=== PATIENT | female | born 1960 | race Caucasian/White ===

== ENCOUNTER 2016-12-05 20:19 | Emergency (ER) | payer OTHER ==
[~2016-12-05] VITALS: Ht 165.1 cm; Wt 104.1 kg
[~2016-12-05 20:19] MED LIST: ASPEC81 PO; LPR25 PO; SPECTAB8 PO; SYN112 PO
[2016-12-05 20:23] VITALS: TEMP 36.8; Ht 165.1 cm; Wt 104.1 kg
[2016-12-05] MEDS ORDERED: XYLOCAINE 1%/SOD BICARB 20 ML VIAL INFIL ONE (21:15)
[2016-12-05] MEDS ORDERED: AMOX875T PO (22:12)
[2016-12-05] MEDS ORDERED: AMOXICIL/CLAVU 875MG HOME PACK PO ONE (22:15)
[2016-12-05 22:21] VITALS: BP 180/97; PULSE 109; O2SAT 95
--- NOTE | 2016-12-06 20:55 | EMERGENCY ROOM VISIT NOTE ---
History First contact with patient: 20:57 Chief Complaint: BITE Stated Complaint: BIT BY DOG, SIGNIFICANT BLEEDING FROM LIP History of Present Illness The patient is a 56 year old female who presents to the Emergency Room with complaints of dog bite laceration to her lip that occurred just prior to arrival. The patient has a young Poppy at home that is reportedly up-to-date on its immunizations including rabies. The patient leaned over to kiss the dog , when it nipped at her face, causing one of the dogs teeth to cut the right side of the patient's lip. The patient is up-to-date on her tetanus. She is on aspirin but no blood thinners. She did not suffer additional injury, but was not able to get the bleeding controlled at home. The patient rates her discomfort a 4/10. Review of Systems More than 10 systems were reviewed and otherwise negative with the exception of history of present illness. Past Medical/Surgical History Medical Problems: (1) Hypotension Family History No pertinent family history Social History Smoking Status: Never Smoker Alcohol Use: none Drug Use: none Marital Status: Housing Status: lives with family Occupation Status: employed Current/Historical Medications Scheduled Amoxicillin & Pot Clavulanate (Augmentin 875-125 mg), 1 TAB PO BID Levothyroxine Sodium (Synthroid), 112 MCG PO DAILYBB Metoprolol Tartrate (Lopressor), 25 MG PO DAILY Allergies Coded Allergies: Sulfamethoxazole w/Trimethoprim (Unverified Allergy, Unknown, RASH ON LEGS , 12/05/16) Physical Exam Vital Signs Date Time Temp Pulse Resp B/P Pulse Ox O2 Delivery O2 Flow Rate FiO2 12/05/16 22:21 109 18 180/97 95 12/05/16 20:23 36.8 130 20 187/85 97 Room Air Pain Rating (0-10): 4.0 Physical Exam VITALS: Vitals are noted on the nurse's note and reviewed by myself. Vital signs stable. GENERAL: Well-developed, well-nourished, white female, who is in no acute distress and resting comfortably. Patient is cooperative with the examination. HEAD: Normocephalic atraumatic. MOUTH: Mucous membranes moist. Tonsils are not enlarged. Pharynx without erythema, blood, or exudate. Uvula midline. Airway patent. Dentition in good repair. There is an irregular Y-shaped 1.5 cm laceration in the very corner of the right lip. This laceration does gape and will require repair. The laceration does not cross the vermilion border, but does mildly enter into the oropharynx. NECK: Supple without nuchal rigidity. No lymphadenopathy. No thyromegaly. Cervical spine is nontender. HEART: Regular rate and rhythm without murmurs gallops or rubs. LUNGS: Clear to auscultation bilaterally without wheezes, rales or rhonchi. No retractions or accessory muscle use. Medical Decision & Procedures Medications Administered Medications (Trade) Dose Ordered Sig/David Route Start Time Stop Time Status Last Admin Dose Admin Amoxicillin/ Clavulanate Potassium (Augmentin 875MG Home Pack) 1 homepack UD ONCE PO 12/05/16 22:15 12/05/16 22:16 DC 12/05/16 22:21 1 HOMEPACK Procedure Laceration repair. Patient elects to have their laceration repaired. Verbal consent was obtained to perform the procedure. There is an abundance of materials available for the procedure. Patient is not allergic to latex. Using sterile technique the wound was cleaned with Betadine. The area was sterilely draped. 3 mL of 1% buffered lidocaine was used to anesthetize the right side lip laceration. Once the patient was anesthetized, the wound was copiously irrigated under pressure with sterile saline. The wound was explored and there were no deep structures injured such as tendons, bone, or significant blood vessels. The laceration was repaired using 2 buried 6-0 Vicryl sutures in the mouth and 2 simple interrupted 6-0 Vicryl sutures on the outside lip. The wound edges were well approximated. Hemostasis was achieved. The area was cleaned with sterile saline. Patient tolerated the procedure well without complications. Blood loss was negligible. ED Course Physical exam and history were performed. Nursing notes and EMR were reviewed. Patient appears to have suffered a dog bite laceration to the right side of her lip. I discussed options of care with the patient, and laceration was repaired as above. The patient did tolerate the procedure well. Dog bite form was completed. The patient will be started on Augmentin for the next few days. I discussed with patient the importance of close follow-up for this type of laceration. She may need plastics to review this in the future, although the laceration did come together very well. The patient was pleased with this plan and voiced understanding. The chart was completed utilizing [employer] Speech Voice Recognition Software. Grammatical errors, random word insertions, pronoun errors, and incomplete sentences are an occasional consequence of this system due to software limitations, ambient noise, and hardware issues. Any formal questions or concerns about the content, text, or information contained within the body of this dictation should be directly addressed to the provider for clarification. . Medical Decision Differential diagnosis includes, but is not limited to: Laceration, abrasion, foreign body, dog bite, infection, and others Impression Primary Impression: Dog bite Additional Impression: Lip laceration Departure Information Dispostion Home / Self-Care Condition GOOD Prescriptions Amoxicillin & Pot Clavulanate (Augmentin 875-125 mg) 1 Tab Tab 1 TAB PO BID for 5 Days, #10 TAB Prov: Cezar Altamirano PA-C 12/05/16 Referrals Kassidy Lange MD Forms HOME CARE DOCUMENTATION FORM, IMPORTANT VISIT INFORMATION Patient Instructions My [facility] Additional Instructions You were seen and evaluated today on an emergency basis only. This is not a substitute for, or an effort to provide, complete comprehensive medical care. It is not possible to recognize and treat all injuries or illnesses in a single emergency department visit. For this reason it is recommended that you followup with your primary care physician next week for a recheck of your laceration. Dog bites have a high risk of infection. Because of this we recommend that you take Augmentin. Amoxicillin Clavulanate (Augmentin) 875mg: Take one pill twice daily for 5 more days to prevent infection. All antibiotics can cause diarrhea. If this occurs and you feel worse or it does not resolve in 1-2 days follow up with your doctor or return to the Emergency Department as this could be signs of serious underlying problems. Any medication can cause an allergic reaction, stop the pills immediately and return to the ER for rash, hives, breathing difficulties, or swelling. Be gentle with opening the mouth. Eating hard/tough foods or drinking with a straw could cause your wound to open. It will typically take 5-7 days for your wound to heal well. Your sutures should dissolve on their own. If you have concerns about the cosmetic appearance please follow-up with plastics, Dr. Lange's office. You are welcome to return to the emergency department anytime with new, worsening, or concerning symptoms. Problem Qualifiers
== END 2016-12-05 22:24 | disposition home or self-care (01) ==
LOC: C.EDB 20:20
DX: S01.551A Open bite of lip, initial encounter (principal); W54.0XXA Bitten by dog, initial encounter; Z88.2 Allergy status to sulfonamides

== ENCOUNTER → 2017-01-07 | Outpatient (CLI) | payer OTHER ==
[~2017-01-07] MED LIST changes: -ASPEC81 PO; +DOXY100C2 PO; +LEVO112T4 PO; +METO25TA56 PO; +MULT-240 PO; +NAPR1TAB9 PO; -SPECTAB8 PO
[2017-01-07 13:19] LABS: THYROID STIMULATING HORMONE 0.384 uIu/ml (0.300-4.500)
== END | disposition home or self-care (01) ==
LOC: C.LABBFT 09:53
PROVIDERS: ATTEND Internal Medicine
DX: E03.9 Hypothyroidism, unspecified (principal); E78.5 Hyperlipidemia, unspecified

== ENCOUNTER 2017-02-02 20:23 | Emergency (ER) | payer OTHER ==
[~2017-02-02] VITALS: Ht 165.1 cm; Wt 104.2 kg
[~2017-02-02 20:23] MED LIST changes: -DOXY100C2 PO; -LEVO112T4 PO; -METO25TA56 PO; -MULT-240 PO; -NAPR1TAB9 PO
[2017-02-02 20:25] VITALS: TEMP 37.5; Ht 165.1 cm; Wt 104.2 kg
[2017-02-02] MEDS ORDERED: METO25TA56 PO (20:59)
[2017-02-02] MEDS ORDERED: MULT-240 PO (20:59)
[2017-02-02] MEDS ORDERED: NAPR1TAB9 PO (20:59)
[2017-02-02] MEDS ORDERED: LEVO112T4 PO (20:59)
[2017-02-02 21:03] LABS: BASO % 0.6 %; BASO ABS # 0.02 K/uL (0-0.2); COMPLETE YES; EOS % 1.2 %; HEMATOCRIT 39.5 % (37-47); IG% 0.3 %; LYMPH % 31.6 %; LYMPH ABS # 1.08 K/uL (1.2-3.4); MEAN CELL VOLUME 86.2 fL (80-100); MEAN CORPUSCULAR HEMOGLOBIN 29.3 pg (25-34); MEAN CORPUSCULAR HGB CONC 33.9 g/dl (32-36); MEAN PLATELET VOLUME 9.1 fL (7.4-10.4); MONO % 12.9 %; NEUT % 53.4 %; PLATELET COUNT 207 K/uL (130-400); RED BLOOD COUNT 4.58 M/uL (4.2-5.4); WHITE BLOOD COUNT 3.42 K/uL (4.8-10.8)
[2017-02-02 21:22] LABS: ALT/SGPT 36 U/L (12-78); BLOOD UREA NITROGEN 14 mg/dl (7-18); BUN/CREATININE RATIO 16.2 (10-20); CALCIUM 8.7 mg/dl (8.5-10.1); CARBON DIOXIDE 24 mmol/L (21-32); CHLORIDE 105 mmol/L (98-107); CREATININE 0.89 mg/dl (0.60-1.20); GLUCOSE 110 mg/dl (70-99); POTASSIUM 3.8 mmol/L (3.5-5.1); SODIUM 140 mmol/L (136-145)
[2017-02-02 21:24] LABS: ALKALINE PHOSPHATASE 88 U/L (45-117); AST/SGOT 34 U/L (15-37)
[2017-02-02 21:54] LABS: LYME DISEASE AB IGG NEG (NEG); LYME DISEASE AB IGM NEG (NEG)
[2017-02-02] MEDS ORDERED: DOXYCYCLINE HYCLATE 100 MG CAP PO ONE (22:00)
[2017-02-02] MEDS ORDERED: DOXY100C2 PO (22:02)
[2017-02-02 22:15] VITALS: BP 140/79; PULSE 76; O2SAT 96
--- NOTE | 2017-02-02 22:29 | EMERGENCY ROOM VISIT NOTE ---
History Report prepared by Nadine: Gita Gifford Under the Supervision of: Dr. Eamon Pack M.D. First contact with patient: 20:30 Chief Complaint: ILLNESS Stated Complaint: TICK BITE, BODY ACHES, FEVER History of Present Illness The patient is a 56 year old female who presents to the Emergency Room with complaints of worsening illness that started two days ago. The patient states that she pulled a tick off of her three weeks ago and her pulled another one off of her back three days ago. The tick that was on her back three days ago was engorged. She is unsure of how long the ticks were on her. She assumes that she got the ticks from either her yard or her dog. Two days ago, the day after pulling the tick off, she experienced fatigue and chills. She woke up the following night with generalized joint aches, which were relieved with Advil. The patient noticed that she had a fever yesterday and the highest recorded fever was 101.5. She is also experiencing nausea. She states that she developed a headache tonight and still has her other symptoms. She denies cough , cold symptoms, and sinus congestion. The patient has not noticed any rashes. Source of History: patient Onset: two days ago Position: other (global ) Quality: other (illness) Timing: worsening Associated Symptoms: + chills, + fatigue, + fevers, + headache, + nausea, No SOB, No chest pain, No cough, No rash Note: generalized joint aches, no cold symptoms, no sinus congestion Review of Systems See HPI for pertinent positives & negatives. A total of 10 systems reviewed and were otherwise negative. Past Medical & Surgical Medical Problems: (1) Hypotension Family History No pertinent family history Social History Smoking Status: Never Smoker Alcohol Use: none Drug Use: none Marital Status: Housing Status: lives with family Occupation Status: employed Current/Historical Medications Scheduled Doxycycline Hyclate (Vibramycin), 100 MG PO BID Levothyroxine Sodium (Levothyroxine Sodium), 112 MCG PO DAILY Metoprolol Tartrate (Lopressor) (Lopressor), 25 MG PO DAILY Multiple Vitamins W/ Minerals (Womens One Daily), 1 TAB PO DAILY Scheduled PRN Naproxen (Aleve), 220 MG PO UD PRN for Pain Allergies Coded Allergies: Sulfamethoxazole w/Trimethoprim (Unverified Allergy, Unknown, RASH ON LEGS , 12/05/16) Physical Exam Vital Signs Date Time Temp Pulse Resp B/P Pulse Ox O2 Delivery O2 Flow Rate FiO2 02/02/17 20:25 37.5 93 16 198/83 95 Room Air Physical Exam Constitutional: Vital signs reviewed. Eyes: Pupils are equal round reactive to light. Conjunctiva are noninjected. ENT: Pharynx is clear without erythema or exudate. Mucous membranes are moist. Neck supple without meningeal signs. Respiratory: Clear to auscultation bilaterally. Breath sounds are equal bilaterally. Cardiovascular: Regular rate and rhythm. No rubs or gallops. GI: Soft, nondistended and nontender. Bowel sounds are present. Musculoskeletal: No peripheral edema. No lower extremity tenderness. No joint swelling or erythema. Integumentary: Small scab over presumed insect bite on the left flank. No tick parts visible. Minimal surrounding erythema. No bull's-eye rash. Neurological: The patient is awake and alert. No focal deficits. Psychiatric: Normal affect. Medical Decision & Procedures Laboratory Results 02/02/17 20:46 Red Blood Count 4.58, Mean Corpuscular Volume 86.2, Mean Corpuscular Hemoglobin 29.3, Mean Corpuscular Hemoglobin Concent 33.9, Mean Platelet Volume 9.1, Neutrophils (%) (Auto) 53.4, Lymphocytes (%) (Auto) 31.6, Monocytes (%) (Auto) 12.9, Eosinophils (%) (Auto) 1.2, Basophils (%) (Auto) 0.6, Neutrophils # (Auto ) 1.83, Lymphocytes # (Auto) 1.08, Monocytes # (Auto) 0.44, Eosinophils # (Auto ) 0.04, Basophils # (Auto) 0.02 02/02/17 20:46 Test 02/02/17 20:46 02/02/17 20:55 White Blood Count 3.42 K/uL (4.8-10.8) Red Blood Count 4.58 M/uL (4.2-5.4) Hemoglobin 13.4 g/dL (12.0-16.0) Hematocrit 39.5 % (37-47) Mean Corpuscular Volume 86.2 fL (80-100) Mean Corpuscular Hemoglobin 29.3 pg (25-34) Mean Corpuscular Hemoglobin Concent 33.9 g/dl (32-36) Platelet Count 207 K/uL (130-400) Mean Platelet Volume 9.1 fL (7.4-10.4) Neutrophils (%) (Auto) 53.4 % Lymphocytes (%) (Auto) 31.6 % Monocytes (%) (Auto) 12.9 % Eosinophils (%) (Auto) 1.2 % Basophils (%) (Auto) 0.6 % Neutrophils # (Auto) 1.83 K/uL (1.4-6.5) Lymphocytes # (Auto) 1.08 K/uL (1.2-3.4) Monocytes # (Auto) 0.44 K/uL (0.11-0.59) Eosinophils # (Auto) 0.04 K/uL (0-0.5) Basophils # (Auto) 0.02 K/uL (0-0.2) RDW Standard Deviation 44.5 fL (36.4-46.3) RDW Coefficient of Variation 14.1 % (11.5-14.5) Immature Granulocyte % (Auto) 0.3 % Immature Granulocyte # (Auto) 0.01 K/uL (0.00-0.02) Anion Gap 11.0 mmol/L (3-11) Est Creatinine Clear Calc Drug Dose 84.5 ml/min Estimated GFR () 84.0 Estimated GFR (Non- 72.5 BUN/Creatinine Ratio 16.2 (10-20) Calcium Level 8.7 mg/dl (8.5-10.1) Total Bilirubin 0.3 mg/dl (0.2-1) Direct Bilirubin < 0.1 mg/dl (0-0.2) Aspartate Amino Transf (AST/SGOT) 34 U/L (15-37) Alanine Aminotransferase (ALT/SGPT) 36 U/L (12-78) Alkaline Phosphatase 88 U/L (45-117) Total Protein 7.6 gm/dl (6.4-8.2) Albumin 3.6 gm/dl (3.4-5.0) Lyme Disease IgG Antibody NEG (NEG) Lyme Disease IgM Antibody NEG (NEG) Influenza Type A Antigen Neg for Influ A (NEG) Influenza Type B Antigen Neg for Influ B (NEG) Laboratory results as reviewed by me. Medications Administered Medications (Trade) Dose Ordered Sig/David Route Start Time Stop Time Status Last Admin Dose Admin Doxycycline Hyclate (Vibramycin Cap) 100 mg ONE ONCE PO 02/02/17 22:00 02/02/17 22:01 DC 02/02/17 22:11 100 MG ED Course 2031: The patient was evaluated in room A3. A complete history and physical exam was performed. 2154: Upon reevaluation, the patient appeared to have improvement of her symptoms. I discussed tonight's findings with her. She is going to have her blood pressure and white blood count checked by her PCP. She verbalized agreement of the treatment plan. She was discharged home. 2199: Ordered Doxycycline Hyclate 100 mg PO Medical Decision This is a 56-year-old female who presents with body aches, fever and headache. Differential diagnosis includes Lyme disease, ehrlichiosis, babesiosis, influenza, viral syndrome. I did perform a limited focused review of portions of the patient's old chart on the electronic medical record. The patient has had no recent pertinent visits to this hospital. I did evaluate the patient as noted above. IV access was established. I did order and review the patient's blood work as noted in the electronic medical record. Her white blood cell count is slightly low. Lyme serology is negative. LFTs are unremarkable. Rapid flu test is negative. I did discuss the test results with the patient. Despite a negative Lyme serology she does have symptoms consistent with Lyme disease and I did recommend treating her with doxycycline for 3 weeks given she did have several tick bites recently. She was in agreement. She also had an elevated blood pressure. I did recommend that she have it rechecked by her doctor. She stated that she would as well as have her white blood cell count rechecked. The patient was given doxycycline here and discharged with a prescription for 21 days of doxycycline. She was given precautions regarding this medication. She was discharged in good condition. Impression Primary Impression: Lyme disease Additional Impressions: Elevated blood pressure reading Leukopenia Scribe Attestation The scribe's documentation has been prepared under my direct and personally reviewed by me in its entirety. I confirm that the note above accurately reflects all work, treatment, procedures, and medical decision making performed by me. Departure Information Dispostion Home / Self-Care Prescriptions Doxycycline Hyclate (VIBRAMYCIN) 100 Mg Cap 100 MG PO BID for 21 Days, #41 CAP Prov: Eamon Pack M.D. 02/02/17 Referrals Jadiel Mccarthy M.D. (PCP) Forms HOME CARE DOCUMENTATION FORM, IMPORTANT VISIT INFORMATION, WORK / SCHOOL INSTRUCTIONS Patient Instructions ED Hypertension Poss, ED Lyme Disease, [facility] Additional Instructions You have been examined and treated today on an emergency basis only. This is not a substitute for, or an effort to provide, complete comprehensive medical care. It is impossible to recognize and treat all injuries or illnesses in a single emergency department visit. It is therefore important that you follow up closely with your physician. Call as soon as possible for an appointment. Return for worsening symptoms or if you develop chest pain, loss of vision, vomiting, or any other concerning symptoms. Problem Qualifiers
== END 2017-02-02 22:16 | disposition home or self-care (01) ==
LOC: C.EDB 20:24 → C.EDA 22:16
DX: A69.20 Lyme disease, unspecified (principal); D72.819 Decreased white blood cell count, unspecified; R03.0 Elevated blood-pressure reading, without diagnosis of hypertension

== ENCOUNTER → 2017-03-24 | Outpatient (CLI) | payer OTHER ==
[~2017-03-24] MED LIST changes: +DOXY100C2 PO; +LEVO112T4 PO; -LPR25 PO; +METO25TA56 PO; +MULT-240 PO; +NAPR1TAB9 PO; -SYN112 PO
--- NOTE | 2017-03-25 13:07 | MAMMOGRAPHY REPORT ---
BILATERAL DIGITAL SCREENING MAMMOGRAM TOMOSYNTHESIS WITH CAD: 03/24/2017 CLINICAL HISTORY: Routine screening. Patient has no complaints. TECHNIQUE: Breast tomosynthesis in addition to standard 2D mammography was performed. Current study was also evaluated with a Computer Aided Detection (CAD) system. COMPARISON: Comparison is made to exams dated: 03/19/2016 mammogram, 03/17/2015 mammogram, 03/16/2014 mammogram, 12/24/2012 mammogram, 12/23/2011 mammogram, and 10/24/2011 mammogram - [facility]. BREAST COMPOSITION: There are scattered areas of fibroglandular density in both breasts. Mild invo lutional changes comparing to more remote mammograms. FINDINGS: No new suspicious mass, architectural distortion or cluster of microcalcifications is see n. IMPRESSION: ACR BI-RADS CATEGORY 1: NEGATIVE There is no mammographic evidence of malignancy. A 1 year screening mammogram is recommended. The p atient will receive written notification of the results. Approximately 10% of breast cancers are not detected with mammography. A negative mammographic repor t should not delay biopsy if a clinically suggestive mass is present. Shima George M.D. ay/:03/24/2017 16:55:50 Alcohol Still Operator: Leonora AGUIRRE(Ferny)(Sita)(BD), [facility] letter sent: Normal 1/2 BI-RADS Code: ACR BI-RADS Category 1: Negative
== END | disposition home or self-care (01) ==
LOC: C.MAMM 09:28
PROVIDERS: ATTEND Internal Medicine
DX: Z12.31 Encounter for screening mammogram for malignant neoplasm of breast (principal)

== ENCOUNTER → 2017-07-22 | Outpatient (CLI) | payer OTHER ==
[2017-07-22 12:15] LABS: BASO % 0.4 %; BASO ABS # 0.02 K/uL (0-0.2); COMPLETE YES; EOS % 3.3 %; HEMATOCRIT 37.8 % (37-47); IG% 0.4 %; LYMPH % 44.8 %; MEAN CELL VOLUME 87.3 fL (80-100); MEAN CORPUSCULAR HEMOGLOBIN 29.1 pg (25-34); MEAN CORPUSCULAR HGB CONC 33.3 g/dl (32-36); MEAN PLATELET VOLUME 9.3 fL (7.4-10.4); MONO % 8.6 %; NEUT % 42.5 %; PLATELET COUNT 316 K/uL (130-400); RED BLOOD COUNT 4.33 M/uL (4.2-5.4); WHITE BLOOD COUNT 4.91 K/uL (4.8-10.8)
[2017-07-22 12:55] LABS: BLOOD UREA NITROGEN 13 mg/dl (7-18); BUN/CREATININE RATIO 17.4 (10-20); CALCIUM 9.3 mg/dl (8.5-10.1); CARBON DIOXIDE 28 mmol/L (21-32); CHLORIDE 107 mmol/L (98-107); CREATININE 0.77 mg/dl (0.60-1.20); GLUCOSE 93 mg/dl (70-99); POTASSIUM 4.2 mmol/L (3.5-5.1); SODIUM 139 mmol/L (136-145)
[2017-07-22 13:06] LABS: CHOLESTEROL 191 mg/dl (0-200); CHOLESTEROL/HDL RATIO 4.4; HDL CHOLESTEROL 43 mg/dl; LDL CHOLESTEROL CALCULATED 115 mg/dl; THYROID STIMULATING HORMONE 0.368 uIu/ml (0.300-4.500); TRIGLYCERIDES 167 mg/dl (0-150); VERY LOW DENSITY LIPOPROT CALC 33 mg/dl
== END | disposition home or self-care (01) ==
LOC: C.LABBFT 11:03
PROVIDERS: ATTEND Internal Medicine
DX: A69.20 Lyme disease, unspecified (principal); E78.5 Hyperlipidemia, unspecified; E03.9 Hypothyroidism, unspecified; Z11.59 Encounter for screening for other viral diseases

== ENCOUNTER → 2018-03-27 | Outpatient (CLI) | payer OTHER ==
--- NOTE | 2018-03-27 14:19 | MAMMOGRAPHY REPORT ---
BILATERAL DIGITAL SCREENING MAMMOGRAM TOMOSYNTHESIS WITH CAD: 03/27/2018 CLINICAL HISTORY: Routine screening. Patient has no complaints. TECHNIQUE: Breast tomosynthesis in addition to standard 2D mammography was performed. Current study was also evaluated with a Computer Aided Detection (CAD) system. COMPARISON: Comparison is made to exams dated: 03/24/2017 mammogram, 03/19/2016 mammogram, 03/17/2015 ma mmogram, 03/16/2014 mammogram, 12/24/2012 mammogram, and 12/23/[facility]. BREAST COMPOSITION: There are scattered areas of fibroglandular density in both breasts. FINDINGS: No suspicious masses, calcifications, or areas of architectural distortion are noted in ei ther breast. There has been no significant interval change compared to prior exams. IMPRESSION: ACR BI-RADS CATEGORY 1: NEGATIVE There is no mammographic evidence of malignancy. A 1 year screening mammogram is recommended. The pa tient will receive written notification of the results. Approximately 10% of breast cancers are not detected with mammography. A negative mammographic report should not delay biopsy if a clinically suggestive mass is present. Christine Chu M.D. ah/:03/27/2018 12:22:13 Integrative Medicine Physician: Leonora AGUIRRE(Ferny)(Sita)(BD), [facility] letter sent: Normal 1/2 BI-RADS Code: ACR BI-RADS Category 1: Negative
== END | disposition home or self-care (01) ==
LOC: C.MAMM 11:05
PROVIDERS: ATTEND Internal Medicine
DX: Z12.31 Encounter for screening mammogram for malignant neoplasm of breast (principal)

== ENCOUNTER → 2018-04-09 | Outpatient (CLI) | payer OTHER | END | disposition home or self-care (01) | LOC: C.LABBFT 10:36 | PROVIDERS: ATTEND Internal Medicine | DX: J03.90 Acute tonsillitis, unspecified (principal); E03.9 Hypothyroidism, unspecified ==

== ENCOUNTER 2025-01-26 23:51 | Observation (INO) ==
--- NOTE | 2025-01-27 00:12 | Emergency Department Note ---
Impression & Plan Hypertension, Chest pain ED Provider Note CHIEF COMPLAINT: Chest pain HISTORY OF PRESENTING ILLNESS: The patient is a 64-year-old female who arrives to the emergency department for evaluation of palpitations, tachycardia, and some left-sided chest pain. She reports she was seen here 2 nights ago, for similar symptoms. She reports at that time she was recently started on olmesartan and decreased the dose of metoprolol by her PCP. She reports she contacted them today, and they discontinued the olmesartan and started her on amlodipine 5 mg. She reports she took metoprolol 25 mg today, and amlodipine 5 mg, and has persistent palpitations, tachycardia, and noted some slight chest pain in the vehicle on the way over. She reports no radiation of the pain, no shortness of breath, no nausea, vomiting, or diaphoresis. She states she does take levothyroxine, and has had issues with dosing being too high causing tachycardia in the past. She reports she does not remember the last time she had her TSH level checked. She reports no recent illness. She states no abdominal pain, diarrhea, constipation, or dysuria. She is well-appearing otherwise REVIEW OF SYSTEMS: See HPI for pertinent positives and pertinent negatives. ALLERGIES: See below MEDICATIONS: See below PAST MEDICAL HISTORY: See below PHYSICAL EXAM: VITALS: Vitals are noted on the nurse's note and reviewed by myself. Vital signs stable. GENERAL: 64-year-old female, in no acute distress, nondiaphoretic, well- developed well-nourished. SKIN: The skin was without rashes, erythema, edema, or bruising. HEAD: Normocephalic atraumatic. EYES: Pupils equal round and reactive to light and accommodation. Conjunctivae without injection, sclerae without icterus. Extraocular movements intact. MOUTH: Mucous membranes moist. Tonsils are not enlarged. Pharynx without erythema or exudate. Uvula midline. Airway patent. Tongue does not deviate. NECK: Supple without nuchal rigidity. Cervical spine is nontender. No JVD. HEART:Tachycardia with regular rhythm without murmurs gallops or rubs. LUNGS: Clear to auscultation bilaterally without wheezes, rales or rhonchi. No retractions or accessory muscle use. ABDOMEN: Positive bowel sounds x 4. Soft, nontender, without masses or organomegaly. Martinez sign negative. No guarding or rebound tenderness. MUSCULOSKELETAL: No muscle atrophy, erythema, or edema noted. Normal gait. Strength 5/5 throughout. NEURO: Patient was alert and oriented to person place and time. No focal neurological deficits. DIFFERENTIAL DIAGNOSIS: Cardiac ischemia, aortic dissection, pulmonary embolism, pneumothorax, pneumonia, pericarditis, myocarditis, esophageal rupture, GERD, cholecystitis, pancreatitis, musculoskeletal, as well as other pathologies. ED COURSE AND MEDICAL DECISION MAKING: MEDICATIONS GIVEN: 5mg IVP labetalol MONITOR: Continuous child monitor: Order was placed for continuous child monitor. Patient was placed on the child monitor and continuous pulse ox. Patient was noted to be in normal sinus rhythm at an initial rate of 120 bpm per my interpretation. EKG: EKG was interpreted by myself as sinus tachycardia at a rate of 107 with right BBB, with no significant change from previous of 01/24/25. INTERPRETATION OF LABS: I interpreted the labs with full lab results as below in the lab section of this note. Pertinent lab results discussed in the MDM section below. INTERPRETATION OF IMAGING: Imaging studies were interpreted by myself and read by radiology as per the imaging section of this note. MDM SUMMARY: The patient is a pleasant 64-year-old female who arrives to the emergency department for evaluation of the above-stated complaint. A saline lock was established, CBC, CMP, Lipase, Troponin, D-dimer, TSH, Lyme, EKG and chest xray were obtained. Labwork shows no leukocytosis with no anemia. CMP shows no concerning findings, lipase negative, troponin 8.6 with repeat 13.1, D-dimer negative, TSH WNL, Lyme negative. EKG interpreted as above. Chest xray shows no acute cardiopulmonary process per my interpretation. The patient was provided 5mg IV labetalol for hypertension and tachycardia. With elevation of troponin and contiuation of chest pain, the patient will require admission. [facility] the patient under her care for further evaluation. Please refer to her documentation for further patient workup and care. DIAGNOSIS: Hypertension, chest pain The chart was completed utilizing [employer] voice recognition software. Grammatical errors, random word insertions, pronoun errors, and incomplete sentences are an occasional consequence of this system due to software limitations, ambient noise, and hardware issues. Any formal questions or concerns about the content, text, or information contained within the body of this dictation should be directly addressed to the provider for clarification. Past Med/Surg History Problem List (Updated 01/27/25 @ 04:41 by PRASHANTH Almodovar) Chest pain (Acute) Elevated blood pressure reading (Acute) Heart palpitations (Acute) COVID-19 (Acute) Left lumbar pain Hepatic steatosis (Acute) Hyperlipidemia (Acute) "BORDERLINE" Hypertension (Acute) Hypothyroidism (Acute) Obesity (Acute) Splenic artery aneurysm (Acute) Synovial cyst of popliteal space (Acute) Medical History Arthritis Right bundle branch block IN PAST SAW DR. LANGSTON/CARDIOLOGY (NOT TO FOLLOW UP) Surgical History [place] teeth removed H/O arthroscopic knee surgery RT KNEE History of colonoscopy (2021) History of tonsillectomy H/O shoulder surgery LEFT Family History Mother Lung cancer Father Cancer, Onset Age: 57 Aunt Breast cancer maternal Sister Breast cancer, Onset Age: 55 Other No family history of adverse response to anesthesia Denies family history of Ovarian cancer Prostate cancer Myocardial infarction Bleeding disorder Colorectal cancer Social History Smoking Status: Never smoker Second Hand Exposure: Yes (IN THE PAST A CHILD); Do You Dip or Chew Tobacco: No; Hx Alcohol Use: No Hx Substance Use: No Preferred Language: Romanian Communication Ability: Effective Visual Impairment: Partially Limited Hearing Ability: Normal Computer Technical Support Specialist Required: No Beliefs That Will Affect Care: None marital status: Current Living Situation: Spouse current occupational status: employed 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 How many Children do You have: 3 Feels Safe at Home: Yes Childhood Exposure to Second-Hand Smoke: Yes Diet: regular caffeine: Yes Dental Care, Regularly: Yes Physical Activity Frequency: Daily Seatbelt Use: always Sunscreen Use: Yes Assistive Devices: Glasses Allergies Allergies Allergy/AdvReac Type Severity Reaction Status Date / Time sulfamethoxazole Allergy Mild RASH ON Verified 01/27/25 02:56 LEGS trimethoprim Allergy Mild RASH ON Verified 01/27/25 02:56 LEGS Bactrim Allergy Unknown RASH ON Unverified 12/05/16 21:18 LEGS Home Meds Home Medications Medication Instructions Recorded Confirmed metoprolol tartrate 25 mg tablet 25 mg PO DAILY 01/27/25 01/27/25 Previous Rx's Medication Instructions Recorded rosuvastatin 10 mg tablet 10 mg PO DAILY #90 tabs 05/25/24 levothyroxine 112 mcg tablet 112 mcg PO DAILY #90 tabs 01/13/25 amlodipine 5 mg tablet 5 mg PO DAILY #30 tabs 01/26/25 Results & Data (ED) Vital Signs Vital Signs - 24 hr 01/26/25 23:53 01/27/25 00:09 01/27/25 00:14 Temperature 36.7 C Temperature Source Temporal Artery Scan Pulse Rate 120 H 88 Pulse Rate [Apical] Respiratory Rate 22 Respiratory Effort / Characteristics Non-Labored Spontaneous Respiratory Depth Normal Respiratory Pattern Blood Pressure 219/94 H Blood Pressure [Left Arm] Blood Pressure Mean 135 Blood Pressure Mean [Left Arm] Pulse Oximetry 96 95 Oxygen Delivery Method Room Air Room Air Sepsis Recent Fever Within 48 Hours No Sepsis New/Unexplained Change in Mental Status No Sepsis Action Taken by Nursing No Action Required 01/27/25 00:30 01/27/25 01:00 01/27/25 01:30 Temperature Temperature Source Pulse Rate Pulse Rate [Apical] 90 89 78 Respiratory Rate 18 18 16 Respiratory Effort / Characteristics Non-Labored Spontaneous Respiratory Depth Normal Respiratory Pattern Regular Blood Pressure Blood Pressure [Left Arm] 205/93 H 185/92 H 181/94 H Blood Pressure Mean Blood Pressure Mean [Left Arm] 130 123 123 Pulse Oximetry 96 95 93 Oxygen Delivery Method Room Air Room Air Room Air Sepsis Recent Fever Within 48 Hours Sepsis New/Unexplained Change in Mental Status Sepsis Action Taken by Nursing 01/27/25 02:00 01/27/25 02:30 01/27/25 03:50 Temperature Temperature Source Pulse Rate 80 Pulse Rate [Apical] 89 95 H Respiratory Rate 16 18 Respiratory Effort / Characteristics Respiratory Depth Respiratory Pattern Blood Pressure 214/120 H Blood Pressure [Left Arm] 178/86 H 189/93 H Blood Pressure Mean Blood Pressure Mean [Left Arm] 116 125 Pulse Oximetry 95 95 Oxygen Delivery Method Room Air Room Air Sepsis Recent Fever Within 48 Hours Sepsis New/Unexplained Change in Mental Status Sepsis Action Taken by Nursing 01/27/25 04:00 01/27/25 04:08 01/27/25 04:13 Temperature Temperature Source Pulse Rate 80 86 Pulse Rate [Apical] 76 Respiratory Rate 18 Respiratory Effort / Characteristics Respiratory Depth Respiratory Pattern Blood Pressure 204/101 H Blood Pressure [Left Arm] 200/90 H Blood Pressure Mean Blood Pressure Mean [Left Arm] 126 Pulse Oximetry 94 Oxygen Delivery Method Room Air Sepsis Recent Fever Within 48 Hours Sepsis New/Unexplained Change in Mental Status Sepsis Action Taken by [facility] Medications Current Medication List: was personally reviewed by me Laboratory Data Attestation: I reviewed the patient's lab results. 01/27/25 00:06 01/27/25 00:06 Lab Results 01/27/25 01/27/25 01/27/25 Range/Units 00:06 00:09 00:55 WBC 7.98 (4.8-10.8) K/ul RBC 4.76 (4.20-5.40) M/uL Hgb 13.6 (12.0-16.0) g/dl Hct 40.8 (37.0-47.0) % MCV 85.7 (80.0-100.0) fL MCH 28.6 (25.0-34.0) pg MCHC 33.3 (32.0-36.0) g/dL RDW Std Deviation 42.5 (36.4-46.3) fL RDW Coeff of Maria Guadalupe 13.6 (11.5-14.5) % Plt Count 351 (130-400) K/uL MPV 9.1 L (9.4-12.4) fL Immature Gran % (Auto) 0.4 % Neut % (Auto) 43.6 % Lymph % (Auto) 45.4 % [place] % (Auto) 8.8 % Eos % (Auto) 1.3 % Baso % (Auto) 0.5 % Neut # (Auto) 3.49 (1.40-6.50) K/uL Lymph # (Auto) 3.62 H (1.20-3.40) K/uL [place] # (Auto) 0.70 H (0.11-0.59) K/uL Eos # (Auto) 0.10 (0.00-0.50) K/uL Baso # (Auto) 0.04 (0.00-0.20) K/uL Immature Gran # (Auto) 0.03 (0.01-0.20) K/uL D-Dimer 260 (0-500) ug/L FEU Sodium 138 (136-145) mmol/L Potassium 3.6 (3.5-5.1) mmol/L Chloride 105 (98-107) mmol/L Carbon Dioxide 25 (21-32) mmol/L Anion Gap 8 (3-11) BUN 14 (6-23) mg/dl Creatinine 0.80 (0.6-1.2) mg/dl Est Cr Clr Drug Dosing 83.0 ml/min eGFR 82.23 BUN/Creatinine Ratio 17.5 (10-20) Glucose 129 H (70-99(Fasting)) mg/dl Calcium 10.0 (8.6-10.3) mg/dl Total Bilirubin 0.5 (0.2-1.0) mg/dl AST 22 (13-39) U/L ALT 20 (7-52) U/L Alkaline Phosphatase 67 (34-104) U/L Troponin I High Sens 8.6 (0-14) pg/ml Total Protein 8.2 (6.0-8.3) gm/dl Albumin 4.7 (3.4-5.0) gm/dl Globulin 3.5 (2.5-4.0) gm/dl Albumin/Globulin Ratio 1.3 (0.9-2) Lipase 42 (11-82) U/L TSH 3.416 (0.300-4.500) uIu/ml Urine Color Yellow Urine Appearance Clear (Clear) Urine pH 6.5 (4.5-7.5) Ur Specific [place] 1.004 (1.000-1.030) Urine Protein Trace H (Negative) Urine Glucose (UA) Negative (Negative) Urine Ketones Negative (Negative) Urine Blood Negative (Negative) Urine Nitrite Negative (Negative) Urine Bilirubin Negative (Negative) Urine Urobilinogen Negative (Negative) Ur Leukocyte Esterase Negative (Negative) Urine WBC (Auto) 0-5 (0-5) /hpf Urine RBC (Auto) 0-2 (0-2) /hpf U Hyaline Cast (Auto) 0-2 (0-2) /lpf U Epithel Cells (Auto) 0-2 (0-2) /hpf Urine Bacteria (Auto) None Seen (None Seen) Lyme Disease Screen Negative (Negative) 01/27/25 Range/Units 02:16 WBC (4.8-10.8) K/ul RBC (4.20-5.40) M/uL Hgb (12.0-16.0) g/dl Hct (37.0-47.0) % MCV (80.0-100.0) fL MCH (25.0-34.0) pg MCHC (32.0-36.0) g/dL RDW Std Deviation (36.4-46.3) fL RDW Coeff of Maria Guadalupe (11.5-14.5) % Plt Count (130-400) K/uL MPV (9.4-12.4) fL Immature Gran % (Auto) % Neut % (Auto) % Lymph % (Auto) % [place] % (Auto) % Eos % (Auto) % Baso % (Auto) % Neut # (Auto) (1.40-6.50) K/uL Lymph # (Auto) (1.20-3.40) K/uL [place] # (Auto) (0.11-0.59) K/uL Eos # (Auto) (0.00-0.50) K/uL Baso # (Auto) (0.00-0.20) K/uL Immature Gran # (Auto) (0.01-0.20) K/uL D-Dimer (0-500) ug/L FEU Sodium (136-145) mmol/L Potassium (3.5-5.1) mmol/L Chloride (98-107) mmol/L Carbon Dioxide (21-32) mmol/L Anion Gap (3-11) BUN (6-23) mg/dl Creatinine (0.6-1.2) mg/dl Est Cr Clr Drug Dosing ml/min eGFR BUN/Creatinine Ratio (10-20) Glucose (70-99(Fasting)) mg/dl Calcium (8.6-10.3) mg/dl Total Bilirubin (0.2-1.0) mg/dl AST (13-39) U/L ALT (7-52) U/L Alkaline Phosphatase (34-104) U/L Troponin I High Sens 13.1 D (0-14) pg/ml Total Protein (6.0-8.3) gm/dl Albumin (3.4-5.0) gm/dl Globulin (2.5-4.0) gm/dl Albumin/Globulin Ratio (0.9-2) Lipase (11-82) U/L TSH (0.300-4.500) uIu/ml Urine Color Urine Appearance (Clear) Urine pH (4.5-7.5) Ur Specific [place] (1.000-1.030) Urine Protein (Negative) Urine Glucose (UA) (Negative) Urine Ketones (Negative) Urine Blood (Negative) Urine Nitrite (Negative) Urine Bilirubin (Negative) Urine Urobilinogen (Negative) Ur Leukocyte Esterase (Negative) Urine WBC (Auto) (0-5) /hpf Urine RBC (Auto) (0-2) /hpf U Hyaline Cast (Auto) (0-2) /lpf U Epithel Cells (Auto) (0-2) /hpf Urine Bacteria (Auto) (None Seen) Lyme Disease Screen (Negative) Administered Medications Discontinued Medications Amlodipine Besylate (Amlodipine Besylate 5 Mg Tab) 5 mg PO NOW STA Stop: 01/27/25 03:54 Last Admin: 01/27/25 04:09 Dose: 5 mg Documented By: AN Labetalol HCl (Labetalol Hcl Iv 5 Mg/Ml 20ml) 5 mg IV NOW STA Stop: 01/27/25 03:10 Last Admin: 01/27/25 03:50 Dose: 5 mg Documented By: AN Metoprolol Tartrate (Metoprolol Tartrate 25 Mg Tab) 25 mg PO NOW STA Stop: 01/27/25 03:48 Last Admin: 01/27/25 04:09 Dose: 25 mg Documented By: AN Imaging Data Attestation: I personally reviewed and interpreted this imaging study as follows: Discharge Plan Visit Data Chief Complaint: Chest Pain Stated Complaint: CHEST PAIN, HEART RACING TO FAST ED Provider: Arlene Prado ED Midlevel Provider: Yamilet Hyde Discharge Problem: Hypertension, Chest pain Forms Stand Alone Forms: My [facility] [employer] Prescriptions Prescriptions: No Action rosuvastatin 10 mg tablet 10 mg PO DAILY Qty: 90 3RF levothyroxine 112 mcg tablet 112 mcg PO DAILY Qty: 90 3RF amlodipine 5 mg tablet 5 mg PO DAILY Qty: 30 2RF metoprolol tartrate 25 mg tablet 25 mg PO DAILY Referrals Referrals: Jadiel Mccarthy MD [Primary Care Provider] -
[2025-01-27 00:24] LABS: Basophils # (auto) 0.04 K/uL (0.00-0.20); Basophils % (auto) 0.5 %; Eosinophils % (auto) 1.3 %; Hematocrit (blood only) 40.8 % (37.0-47.0); Hemoglobin 13.6 g/dl (12.0-16.0); Immature Granulocytes # (auto) 0.03 K/uL (0.01-0.20); Immature Granulocytes % (auto) 0.4 %; Lymphocytes # (auto) 3.62 K/uL (1.20-3.40); Lymphocytes % (auto) 45.4 %; Mean Corpuscular Hemoglobin 28.6 pg (25.0-34.0); Mean Corpuscular Hgb Conc 33.3 g/dL (32.0-36.0); Mean Corpuscular Volume 85.7 fL (80.0-100.0); Mean Platelet Volume 9.1 fL (9.4-12.4); Monocytes % (auto) 8.8 %; Neutrophils # (auto) 3.49 K/uL (1.40-6.50); Neutrophils % (auto) 43.6 %; Platelet Count 351 K/uL (130-400); RDW Coefficient of Variation 13.6 % (11.5-14.5); RDW Standard Deviation 42.5 fL (36.4-46.3); Red Blood Count 4.76 M/uL (4.20-5.40); White Blood Count 7.98 K/ul (4.8-10.8)
[2025-01-27 00:36] LABS: Albumin Globulin Ratio 1.3 (0.9-2); Albumin Level 4.7 gm/dl (3.4-5.0); BUN Creatinine Ratio 17.5 (10-20); Bilirubin,Total 0.5 mg/dl (0.2-1.0); Globulin 3.5 gm/dl (2.5-4.0); Potassium 3.6 mmol/L (3.5-5.1); Total Protein 8.2 gm/dl (6.0-8.3)
[2025-01-27 00:43] LABS: Troponin I High Sensitivity 8.6 pg/ml (0-14)
[2025-01-27 00:49] LABS: D Dimer 260 ug/L FEU (0-500)
[2025-01-27 00:53] LABS: Thyroid Stimulating Hormone 3.416 uIu/ml (0.300-4.500)
[2025-01-27 01:11] LABS: Appearance Urine Clear (Clear); Bacteria Urine Automated None Seen (None Seen); Bilirubin Urine Negative (Negative); Blood Urine Negative (Negative); Cast Urine Automated 0-2 /lpf (0-2); Color Urine Yellow; Epithelial Cell Urine Auto 0-2 /hpf (0-2); Glucose Urine UA Negative (Negative); Ketones Urine Negative (Negative); Leukocyte Esterase Urine Negative (Negative); Nitrite Urine Negative (Negative); Protein Urine Trace (Negative); RBC Urine Automated 0-2 /hpf (0-2); Specific Gravity Urine 1.004 (1.000-1.030); Urobilinogen Urine Negative (Negative); WBC Urine Automated 0-5 /hpf (0-5); pH Urine 6.5 (4.5-7.5)
--- NOTE | 2025-01-27 03:47 | History & Physical Report ---
Date of Service January 27, 2025 Assessment & Plan (1) Hypertension: (2) Chest pain: (3) Heart palpitations: (4) Hypothyroidism: Plan: 64yo female with history of hypertension presenting with elevated blood pressure, palpitations and left sided chest pain. #Hypertensive Urgency - patient reports poor control of her blood pressure over the last several months. She has undergone multiple medication changes over the past several weeks and her blood pressure continues to be elevated. She has had occasional headaches. Tonight developed palpitations and left sided chest pressure. No laboratory or clinical evidence of end organ damage at present. Blood pressure currently 200/90 Suspect anxiety as well as recent steroid use contributing in part to her elevated blood pressures as well. -Observation to PCU (in the event that IV vasoactive agents needed) -Check Mg -KCl 40mEq po x 1 dose -Will continue Metoprolol. Patient reports that she felt the best while on this medication. Will increase her dose to 25mg po BID with dose being given now. -Will continue Amlodipine 5mg po daily with dose being given now -Continue to monitor blood pressure -Patient should adhere to DASH diet - low sodium, high potassium -Encourage weight loss and routine physical activity to assist with blood pressure management #Chest pain - patient developed left sided chest pain upon arrival, has since resolved. Serial troponins have remained in the normal range but have displayed an upward trend 5 --> 8.6 --> 13.1. EKG with ST depressions present in anterior leads but appears similar to prior studies. RBBB unchanged from prior -Telemetry monitoring -EKG as needed with chest pain -Repeat troponin with AM labs #Hypothyroidism - chronic. TSH WNL -Continue Synthroid F/E/N - Saline lock. Check Mg and replete as needed, KCl x 40mEq now, Heart healthy/Low Na diet Ppx - Low risk for DVT Code - Full Dispo- Observation to PCU History of Present Illness Chief Complaint: elevated blood pressure, chest pressure Primary Care Provider: Jadiel Mccarthy MD Cesar Zhang is a pleasant 64yo female with history of HTN presenting with elevated blood pressure, palpitations and left sided chest pressure. Patient has been working with her PCP's office for blood pressure management. She had been on Metoprolol tartrate 25mg po qAM and 12.5mg po qPM. She reports that initially this regimen was effective, but more recently her blood pressures were not adequately controlled on this regimen - typically 148/90's. She was seen by her PCP on 12/22/24 and her medication was changed to Metoprolol 25mg po qAM and Olmesartan 5mg po daily. She reports blood pressures were not well controlled She was seen by her PCP on 01/14/25 and her medication was changed to Metoprolol 12.5mg po daily and Olmesartan 20mg daily. She did not feel well on this regimen and developed a funny sensation in her chest and palpitations. She ws seen by the ER on 01/24/25 and had a negative cardiac workup and was subsequently discharged home. She was seen by her PCP on 01/25/25 and her medications were changed to Metoprolol 25mg po daily and Olmesartan 20mg daily with plan to followup in 2 weeks. On 01/26/25 she phoned her PCP with poorly controlled blood pressures and Amlodipine 5mg po daily was added as well. Patient was prescribed a medrol dose pack in early December for pain in her shoulder as well. Otherwise she denies tobacco use, EtoH use, OTC cold medications, energy drinks or stimulants. Denies pain, anxiety at present. This evening she developed palpitations with elevated heart rate and pain under her left breast. Her blood pressures were very high at home so she came to the ER. Pain in her chest has since resolved. No headache, visual changes, numbness/tingling/weakness, SOB or back pain at present In the ER patient with elevated blood pressures Labetalol 5mg IV x 1 dose Allergies Allergy/AdvReac Type Severity Reaction Status Date / Time sulfamethoxazole Allergy Mild RASH ON Verified 01/27/25 02:56 LEGS trimethoprim Allergy Mild RASH ON Verified 01/27/25 02:56 LEGS Bactrim Allergy Unknown RASH ON Unverified 12/05/16 21:18 LEGS Home Medications Medication Instructions Recorded Confirmed Type rosuvastatin 10 mg tablet 10 mg PO DAILY #90 tabs 05/25/24 01/27/25 Rx levothyroxine 112 mcg tablet 112 mcg PO DAILY #90 tabs 01/13/25 01/27/25 Rx amlodipine 5 mg tablet 5 mg PO DAILY #30 tabs 01/26/25 01/27/25 Rx metoprolol tartrate 25 mg tablet 25 mg PO DAILY 01/27/25 01/27/25 History Past Med/Surg History Problem List Elevated blood pressure reading (Acute) Heart palpitations (Acute) COVID-19 (Acute) Left lumbar pain Hepatic steatosis (Acute) Hyperlipidemia (Acute) "BORDERLINE" Hypertension (Acute) Hypothyroidism (Acute) Obesity (Acute) Splenic artery aneurysm (Acute) Synovial cyst of popliteal space (Acute) Medical History Arthritis Right bundle branch block IN PAST SAW DR. LANGSTON/CARDIOLOGY (NOT TO FOLLOW UP) Surgical History [place] teeth removed H/O arthroscopic knee surgery RT KNEE History of colonoscopy (2021) History of tonsillectomy H/O shoulder surgery LEFT Family History Mother Lung cancer Father Cancer, Onset Age: 57 Aunt Breast cancer maternal Sister Breast cancer, Onset Age: 55 Other No family history of adverse response to anesthesia Denies family history of Ovarian cancer Prostate cancer Myocardial infarction Bleeding disorder Colorectal cancer Social History Smoking Status: Never smoker Second Hand Exposure: Yes (IN THE PAST A CHILD); Do You Dip or Chew Tobacco: No; Hx Alcohol Use: Yes Alcohol type: wine Alcohol Intake Frequency: Monthly or Less Hx Substance Use: No Preferred Language: Nepalese Communication Ability: Effective Visual Impairment: Partially Limited Hearing Ability: Normal Health And Safety Representative Required: No Beliefs That Will Affect Care: None marital status: Current Living Situation: Spouse current occupational status: employed current occupation: office for [employer] How many Children do You have: 3 Feels Safe at Home: Yes Childhood Exposure to Second-Hand Smoke: Yes Diet: regular caffeine: Yes Dental Care, Regularly: Yes Physical Activity Frequency: Daily Seatbelt Use: always Sunscreen Use: Yes Assistive Devices: Glasses Review of Systems Review of Systems: All systems reviewed & are unremarkable except as noted in HPI & below Physical Exam Physical Exam: General: patient resting comfortably, NAD, non-toxic in appearance, AA&O x 4 Skin: warm, dry, intact, no rashes or lesions HEENT: NC/AT, PERRL, EOMI, anicteric sclera, conjunctiva without injection, external ear normal to inspection and nontender, nares patent, moist mucus membranes, dentition intact, no oropharyngeal lesions, neck supple, trachea midline, no LAD, no thyromegaly, no JVD Heart: +S1/S2, regular, no m/r/g Lungs: equal air entry bilaterally, no rales/rhonchi/wheezes Abd: +BS, soft, NT/ND, no masses/organomegaly/ascites Ext: warm, 2+ pulses in UE/LE bilaterally, no clubbing/cyanosis or edema Neuro: nonfocal, patient AA&O x 4, speech intact, no facial droop, moving all extremities on command with equal strength 5/5 Results & Data Results & Data Vital Signs (Past 12 Hours) Vital Signs Temp Pulse Pulse Resp BP BP Pulse Ox 01/27/25 02:30 95 H 18 189/93 H 95 01/27/25 02:00 89 16 178/86 H 95 01/27/25 01:30 78 16 181/94 H 93 01/27/25 01:00 89 18 185/92 H 95 01/27/25 00:30 90 18 205/93 H 96 01/27/25 00:14 88 01/27/25 00:09 95 01/26/25 23:53 36.7 C 120 H 22 219/94 H 96 O2 Del Method 01/27/25 02:30 Room Air 01/27/25 02:00 Room Air 01/27/25 01:30 Room Air 01/27/25 01:00 Room Air 01/27/25 00:30 Room Air 01/27/25 00:14 01/27/25 00:09 Room Air 01/26/25 23:53 Room Air Laboratory Results Laboratory Results WBC 7.98 K/ul (4.8-10.8) 01/27/25 00:06 RBC 4.76 M/uL (4.20-5.40) 01/27/25 00:06 Hgb 13.6 g/dl (12.0-16.0) 01/27/25 00:06 Hct 40.8 % (37.0-47.0) 01/27/25 00:06 MCV 85.7 fL (80.0-100.0) 01/27/25 00:06 MCH 28.6 pg (25.0-34.0) 01/27/25 00:06 MCHC 33.3 g/dL (32.0-36.0) 01/27/25 00:06 RDW Std Deviation 42.5 fL (36.4-46.3) 01/27/25 00: RDW Coeff of Maria Guadalupe 13.6 % (11.5-14.5) 01/27/25 00: Plt Count 351 K/uL (130-400) 01/27/25 00:06 MPV 9.1 fL (9.4-12.4) L 01/27/25 00:06 Immature Gran % (Auto) 0.4 % 01/27/25 00:06 Neut % (Auto) 43.6 % 01/27/25 00:06 Lymph % (Auto) 45.4 % 01/27/25 00:06 [place] % (Auto) 8.8 % 01/27/25 00:06 Eos % (Auto) 1.3 % 01/27/25 00:06 Baso % (Auto) 0.5 % 01/27/25 00:06 Neut # (Auto) 3.49 K/uL (1.40-6.50) 01/27/25 00:06 Lymph # (Auto) 3.62 K/uL (1.20-3.40) H 01/27/25 00:06 [place] # (Auto) 0.70 K/uL (0.11-0.59) H 01/27/25 00:06 Eos # (Auto) 0.10 K/uL (0.00-0.50) 01/27/25 00:06 Baso # (Auto) 0.04 K/uL (0.00-0.20) 01/27/25 00:06 Immature Gran # (Auto) 0.03 K/uL (0.01-0.20) 01/27/25 00:06 D-Dimer 260 ug/L FEU (0-500) 01/27/25 00:06 Sodium 138 mmol/L (136-145) 01/27/25 00:06 Potassium 3.6 mmol/L (3.5-5.1) 01/27/25 00:06 Chloride 105 mmol/L (98-107) 01/27/25 00:06 Carbon Dioxide 25 mmol/L (21-32) 01/27/25 00:06 Anion Gap 8 (3-11) 01/27/25 00:06 BUN 14 mg/dl (6-23) 01/27/25 00:06 Creatinine 0.80 mg/dl (0.6-1.2) 01/27/25 00:06 Est Cr Clr Drug Dosing 83.0 ml/min 01/27/25 00:06 eGFR 82.23 01/27/25 00:06 BUN/Creatinine Ratio 17.5 (10-20) 01/27/25 00:06 Glucose 129 mg/dl (70-99(Fasting)) H 01/27/25 00:06 Calcium 10.0 mg/dl (8.6-10.3) 01/27/25 00:06 Total Bilirubin 0.5 mg/dl (0.2-1.0) 01/27/25 00:06 AST 22 U/L (13-39) 01/27/25 00:06 ALT 20 U/L (7-52) 01/27/25 00:06 Alkaline Phosphatase 67 U/L (34-104) 01/27/25 00:06 Troponin I High Sens 13.1 pg/ml (0-14) D 01/27/25 02:16 Total Protein 8.2 gm/dl (6.0-8.3) 01/27/25 00:06 Albumin 4.7 gm/dl (3.4-5.0) 01/27/25 00:06 Globulin 3.5 gm/dl (2.5-4.0) 01/27/25 00:06 Albumin/Globulin Ratio 1.3 (0.9-2) 01/27/25 00:06 Lipase 42 U/L (11-82) 01/27/25 00:06 TSH 3.416 uIu/ml (0.300-4.500) 01/27/25 00:06 Urine Color Yellow 01/27/25 00:55 Urine Appearance Clear (Clear) 01/27/25 00:55 Urine pH 6.5 (4.5-7.5) 01/27/25 00:55 Ur Specific [place] 1.004 (1.000-1.030) 01/27/25 00:55 Urine Protein Trace (Negative) H 01/27/25 00:55 Urine Glucose (UA) Negative (Negative) 01/27/25 00:55 Urine Ketones Negative (Negative) 01/27/25 00:55 Urine Blood Negative (Negative) 01/27/25 00:55 Urine Nitrite Negative (Negative) 01/27/25 00:55 Urine Bilirubin Negative (Negative) 01/27/25 00:55 Urine Urobilinogen Negative (Negative) 01/27/25 00:55 Ur Leukocyte Esterase Negative (Negative) 01/27/25 00:55 Urine WBC (Auto) 0-5 /hpf (0-5) 01/27/25 00:55 Urine RBC (Auto) 0-2 /hpf (0-2) 01/27/25 00:55 U Hyaline Cast (Auto) 0-2 /lpf (0-2) 01/27/25 00:55 U Epithel Cells (Auto) 0-2 /hpf (0-2) 01/27/25 00:55 Urine Bacteria (Auto) None Seen (None Seen) 01/27/25 00:55 Lyme Disease Screen Negative (Negative) 01/27/25 00:09 Code Status & VTE Plan VTE Prophylaxis Plan VTE Prophylaxis will be ordered: Yes PG Care Time/CCT Total # of Minutes Spent Total Time Spent with Patient: Total time spent is greater than 50% in coordination of care (as documented) at patient's floor/unit and/or counseling patient: Coding Level of Care Code 36752 INT INP/OBS CARE 3/75MIN Diagnoses Primary hypertension I10 Hypertension type: primary hypertension Chest pain R07.9 Heart palpitations R00.2 Acquired hypothyroidism E03.9 Hypothyroidism type: acquired (1) Hypertension Hypertension type: primary hypertension Qualified Code(s): I10 - Essential (primary) hypertension (4) Hypothyroidism Hypothyroidism type: acquired Qualified Code(s): E03.9 - Hypothyroidism, unspecified
[2025-01-27] MEDS: LABETALOL HCL IV 5 MG/ML 20ML IV STA (03:50)
[2025-01-27] MEDS: amLODIPine BESYLATE 5 MG TAB PO STA (04:09)
[2025-01-27] MEDS: METOPROLOL TARTRATE 25 MG TAB PO STA (04:09)
[2025-01-27] MEDS ORDERED: ONDANSETRON INJ 2 MG/ML 2 ML VIAL IV PRN (05:57)
[2025-01-27] MEDS ORDERED: ACETAMINOPHEN 325 MG TAB PO PRN (05:57)
[2025-01-27 07:09] LABS: Magnesium 1.9 mg/dl (1.7-2.4)
[2025-01-27 07:15] LABS: Troponin I High Sensitivity 12.2 pg/ml (0-14)
[2025-01-27] MEDS: POTASSIUM CHLORIDE CRTAB 20 MEQ TABCR PO STA (07:29)
[2025-01-27] MEDS: ENOXAPARIN INJ 40 MG/0.4 ML SYR SQ SCH (07:30)
[2025-01-27] MEDS: LEVOTHYROXINE SODIUM 112 MCG TABLET PO SCH (07:30)
[2025-01-27] MEDS: ROSUVASTATIN CALCIUM 10 MG TAB PO SCH (07:30)
--- NOTE | 2025-01-27 08:17 | Electrocardiogram Report ---
Test Reason : Blood Pressure : */* mmHG Vent. Rate : 107 BPM Atrial Rate : 107 BPM P-R Int : 138 ms QRS Dur : 118 ms QT Int : 350 ms P-R-T Axes : 57 47 25 degrees QTcB Int : 467 ms Sinus tachycardia Right bundle branch block with repolarization abnormality Abnormal ECG When compared with ECG of 24-Jan-2025 23:44, No significant change Confirmed by Lucio Wolf ([id number]) on 01/27/2025 8:16:48 AM Referred By: REFERRED SELF Confirmed By: Lucio Wolf
[2025-01-27 08:42] LABS: Chol HDL Ratio 2.7 (0-5)
--- NOTE | 2025-01-27 10:23 | XCELERA ---
[id number] \\[id number]
--- NOTE | 2025-01-27 14:06 | Discharge Summary ---
Discharge Summary Date of Service January 27, 2025 Principal Dx & Hospital Course #1 = Principal Diagnosis (1) Hypertension: (2) Chest pain: (3) Heart palpitations: (4) Hypothyroidism: 64 years old female with PMH of FULL CODE @ home, obesity with BMI 38.9 (height 163.8 cm; weight 104.4 kg), hyperlipidemia, hypothyroidism, chronic diastolic CHF with preserved LVEF 60-65% and grade I diastolic dysfunction (as noted on 09/08/2023, 2:47pm TTE, CARDS Dr. Jadiel Ho) with dry baseline weight of 230 pounds and 1 pillow orthopnea on a regular bed with no paroxysmal nocturnal dyspnea, and HTN, who presented to [facility] ER on 01/26/2025 with ad mission blood pressure 214/120 (01/27/2025, 3:50am), palpitations and left-sided chest pain. Patient was subsequently placed in OBSERVATION on the hospitalist service @ [facility] on 01/26/2025 with the following diagnoses: 1. HTN urgency with admission blood pressure 214/120 (01/27/2025, 3:50am) and no end-organ failure with normal creatinine 0.80 mg/dL (01/27/2025, 12:06am). 2. Palpitations and left-sided chest pain, s/p TAMIE. #Hypertensive Urgency - patient reports poor control of her blood pressure over the last several months. She has undergone multiple medication changes over the past several weeks and her blood pressure continues to be elevated. She has had occasional headaches. Tonight developed palpitations and left sided chest pressure. No laboratory or clinical evidence of end organ damage at present. Blood pressure currently 200/90 Suspect anxiety as well as recent steroid use contributing in part to her elevated blood pressures as well. -Observation to PCU (in the event that IV vasoactive agents needed) -Check Mg -KCl 40mEq po x 1 dose -Will continue Metoprolol 25mg PO bid. Patient reports that she felt the best while on this medication. Will increase her dose to 25mg po BID with dose being given now. -Will continue Amlodipine 5mg po daily with dose being given now -Patient has a discharge BP 157/91 (01/27/2025, 7:57am). Hence, patient will continue hospital-started metoprolol tartrate 25mg PO bid and home-scheduled amlodipine 5mg PO daily on hospital discharge home on 01/27/2025. Patient will continue both medications on hospital discharge home on 01/27/2025. To this end, patient's [id number] ([place], [place]) received an electronic prescription for metoprolol tartrate 25mg PO bid, #60 tablets, no refills, on 01/27/2025, prior to patient being discharged home on 01/27/2025. -Patient should adhere to DASH diet - low sodium, high potassium -Encourage weight loss and routine physical activity to assist with blood pressure management #Chest pain - patient developed left sided chest pain upon arrival, has since resolved. Serial troponins remained in the normal range (cf., troponins 5 --> 8.6 --> 13.1). EKG with ST depressions present in anterior leads but appears similar to prior studies. RBBB unchanged from prior EKG. Patient subsequently underwent TTE (01/27/2025, 8:16am) which revealed no LV wall motion abnormalities. Hence, acute myocardial ischemia is very unlikely to be present. Patient was subsequently advised to follow up with her PCP Dr. Jadiel Mccarthy within 7 days of hospital discharge to evaluate for possible outpatient nuclear stress testing. #Hypothyroidism - chronic. TSH normal @ 3.416 uIU/mL (01/27/2025, 12:06am) on home-scheduled synthroid 112ug PO daily. Patient will continue this medication on hospital discharge home on 01/27/2025. -Continue Synthroid Discharge time, 35 minutes. Of this time period, 17 minutes were spent in coordinating patient's discharge. Admission HPI Per Admitting Provider Cesar Zhang is a pleasant 64yo female with history of HTN presenting with elevated blood pressure, palpitations and left sided chest pressure. Patient has been working with her PCP's office for blood pressure management. She had been on Metoprolol tartrate 25mg po qAM and 12.5mg po qPM. She reports that initially this regimen was effective, but more recently her blood pressures were not adequately controlled on this regimen - typically 148/90's. She was seen by her PCP on 12/22/24 and her medication was changed to Metoprolol 25mg po qAM and Olmesartan 5mg po daily. She reports blood pressures were not well controlled She was seen by her PCP on 2/21/25 and her medication was changed to Metoprolol 12.5mg po daily and Olmesartan 20mg daily. She did not feel well on this regimen and developed a funny sensation in her chest and palpitations. She ws seen by the ER on 01/24/25 and had a negative cardiac workup and was subsequently discharged home. She was seen by her PCP on 01/25/25 and her medications were changed to Metoprolol 25mg po daily and Olmesartan 20mg daily with plan to followup in 2 weeks. On 01/26/25 she phoned her PCP with poorly controlled blood pressures and Amlodipine 5mg po daily was added as well. Patient was prescribed a medrol dose pack in early December for pain in her shoulder as well. Otherwise she denies tobacco use, EtoH use, OTC cold medications, energy drinks or stimulants. Denies pain, anxiety at present. This evening she developed palpitations with elevated heart rate and pain under her left breast. Her blood pressures were very high at home so she came to the ER. Pain in her chest has since resolved. No headache, visual changes, numbness/tingling/weakness, SOB or back pain at present In the ER patient with elevated blood pressures Labetalol 5mg IV x 1 dose Discharge Exam Constitutional General: Comfortable, coherent, cooperative. Wide awake and alert. Not confused, lethargic, or obtunded. Patient speaks in complete, fluent, and articulate sentences without pause, interruption, cough, or wheeze. HEENT: Normocephalic, atraumatic. Pupils equally round and reactive to light. Extra-ocular muscles intact. No nystagmus, gaze paresis, anisocoria, miosis, mydriasis, hyphema, scleral injection, conjunctivitis, or pterygium. No rhinorrhea or otorrhea. No pharyngeal discharge or erythema. Neck: Supple, no stridor, bruit, goiter, hepatojugular reflux. Jugular venous pressure is estimated to be 8 cm above the sternal angle of Noe, which is estimated to be 5 cm above the level of the right atrium. Lymph: No anterior/posterior cervical, supraclavicular/infraclavicular, axillary, epitrochlear, or inguinal adenopathy. Chest: Symmetric rise and fall with respirations. Lungs: Clear to auscultation and percussion. No audible expiratory wheeze, egophony, pectoriloquy, increase in tactile fremitus, or flatness/dullness to percussion at the bases. Heart: RRR, S1 and S2 noted. No S3 or S4 summation gallop noted. No tripartite friction rub. Grade II/ early systolic murmur @ LLSB without radiation to the carotids, axilla, or back, and which remains invariant in regards to the respiratory cycle. Abdomen: Soft, generalized tenderness, non-distended. No rebound, guarding, Martinez's sign, or organomegaly. Bowel sounds sounds auscultated in all 4 caty drants. Extremities: No clubbing, cyanosis, or edema. 2+ pedal pulses bilaterally. Skin: No decubitus ulcer or enanthem or exanthem. Neurology: Alert and oriented to person, place, time, and situation. DTR+ and symmetric. 5/5 motor strength in all 4 extremities, both proximally and distally. No pronator drift. No facial droop. No tremors, tics, or myoclonus. Urology: No edmondson. No urethral discharge. Psychiatry: No suicidal ideation. No homicidal ideation. Discharge Plan Discharge Items Patient Disposition: Home - Self-Care Reason For Visit: HYPERTENSION, CHEST PAIN Discharge Diagnosis: HTN urgency with no end-organ failure; chest pain, s/p TAMIE Condition on Discharge: Fair Activity: Resume your previous activity Non-emergency contact: Primary Care Provider Call non-emergency contact if: you have any medication questions Follow-up/Referrals: Jadiel Mccarthy MD [Primary Care Provider] - Diet: Heart Healthy, Low Fat and Low Sodium (2gm) Addtl Attending Provider Instructions: See your PCP Dr. Jadiel Mccarthy within 7 days of hospital discharge for repeat BP testing. Pending Studies at Discharge: No Stand-Alone Forms: [employer], Smoking Cessation Medications and DC Order Prescriptions: New metoprolol tartrate 25 mg Tablet 25 mg PO BID Qty: 60 0RF Continued rosuvastatin 10 mg tablet 10 mg PO DAILY Qty: 90 3RF levothyroxine 112 mcg tablet 112 mcg PO DAILY Qty: 90 3RF amlodipine 5 mg tablet 5 mg PO DAILY Qty: 30 2RF Discontinued metoprolol tartrate 25 mg tablet 25 mg PO DAILY Discharge Orders: Discharge Order (Routine); Ordered 01/27/25 Ordered By: Adrian Corley Discharge Order- CHF (Routine); Ordered 01/27/25 Ordered By: Adrian Corley Admission Data Admit Date/Time: 01/27/25 03:46 Attending Provider: Adrian Corley Admit Provider: Kacey Ferrara Primary Care Provider: Jadiel Mccarthy Other Providers: Kacey Ferrara Hospital Stay Data Consultations 01/27/25 03:13 ED Decision to Admit Stat Pending Results Patient Have Any Pending Studies at Discharge: No Discharge Instructions Given to Patient (Per Discharging Provider) See your PCP Dr. Jadiel Mccarthy within 7 days of hospital discharge for repeat BP testing. Total Time Total Time Spent Total Time Spent (In Minutes): 35 minutes. Coding Level of Care Code 18010 INP/OBS DISCH >30 MIN Diagnoses Primary hypertension I10 Chest pain R07.9 Heart palpitations R00.2 Acquired hypothyroidism E03.9 Hypothyroidism type: acquired
[2025-01-27 20:17] VITALS: RESP 18
[2025-01-27] MEDS: METOPROLOL TARTRATE 25 MG TAB PO SCH (21:12)
[2025-01-28 03:39] VITALS: O2SAT 95
[2025-01-28 07:34] VITALS: TEMP 98.2
[2025-01-28] MEDS: amLODIPine BESYLATE 5 MG TAB PO SCH (07:34)
[2025-01-28 08:01] LABS: BUN Creatinine Ratio 19.7 (10-20); Calcium 9.6 mg/dl (8.6-10.3); Creatinine Clr Calc Pharmacy 88.8 ml/min; Potassium 3.7 mmol/L (3.5-5.1)
--- NOTE | 2025-01-28 09:24 | Discharge Summary ---
Discharge Summary Date of Service January 28, 2025 Principal Dx & Hospital Course #1 = Principal Diagnosis (1) Hypertension: (2) Chest pain: (3) Heart palpitations: (4) Hypothyroidism: 64 years old female with PMH of FULL CODE @ home, obesity with BMI 38.9 (height 163.8 cm; weight 104.4 kg), hyperlipidemia, hypothyroidism, chronic diastolic CHF with preserved LVEF 60-65% and grade I diastolic dysfunction (as noted on 09/08/2023, 2:47pm TTE, CARDS Dr. Jadiel Ho) with dry baseline weight of 230 pounds and 1 pillow orthopnea on a regular bed with no paroxysmal nocturnal dyspnea, and HTN, who presented to [facility] on 01/26/2025 with ad mission blood pressure 214/120 (01/27/2025, 3:50am), palpitations and left-sided chest pain. Patient was subsequently placed in OBSERVATION on the hospitalist service @ [facility] on 01/26/2025 with the following diagnoses: 1. HTN urgency with admission blood pressure 214/120 (01/27/2025, 3:50am) and no end-organ failure with normal creatinine 0.80 mg/dL (01/27/2025, 12:06am), RESOLVED. 2. Palpitations and left-sided chest pain, RESOLVED, s/p TAMIE. #Hypertensive Urgency - patient reports poor control of her blood pressure over the last several months. She has undergone multiple medication changes over the past several weeks and her blood pressure continues to be elevated. She has had occasional headaches. Tonight developed palpitations and left sided chest pressure. No laboratory or clinical evidence of end organ damage at present. Discharge blood pressure is 153/88 (01/28/2025, 8:00am) on metoprolol 25mg PO bid. Suspect anxiety as well as recent steroid use contributing in part to her elevated blood pressures as well. -Observation to PCU (in the event that IV vasoactive agents needed) -Check Mg -KCl 40mEq po x 1 dose -Will continue Metoprolol 25mg PO bid. Patient reports that she felt the best while on this medication. Will increase her dose to 25mg po BID with dose being given now. -Will continue Amlodipine 5mg po daily with dose being given now -Patient has a discharge BP 153/88 (01/28/2025, 8:00am). Hence, patient will continue hospital-started metoprolol tartrate 25mg PO bid and home-scheduled amlodipine 5mg PO daily on hospital discharge home on 01/28/2025. Patient will continue both medications on hospital discharge home on 01/28/2025. To this end, patient's [id number] ([place], [place]) received an electronic prescription for metoprolol tartrate 25mg PO bid, #60 tablets, no refills, on 01/27/2025, prior to patient being discharged home on 01/27/2025. -Patient should adhere to DASH diet - low sodium, high potassium -Encourage weight loss and routine physical activity to assist with blood pressure management #Chest pain - patient developed left sided chest pain upon arrival, has since resolved. Serial troponins remained in the normal range (cf., troponins 5 --> 8.6 --> 13.1). EKG with ST depressions present in anterior leads but appears similar to prior studies. RBBB unchanged from prior EKG. Patient subsequently underwent TTE (01/27/2025, 8:16am) which revealed no LV wall motion abnormalities. Hence, acute myocardial ischemia is very unlikely to be present. Patient was subsequently advised to follow up with her PCP Dr. Jadiel Mccarthy within 7 days of hospital discharge to evaluate for possible outpatient nuclear stress testing. #Hypothyroidism - chronic. TSH normal @ 3.416 uIU/mL (01/27/2025, 12:06am) on home-scheduled synthroid 112ug PO daily. Patient will continue this medication on hospital discharge home on 01/27/2025. -Continue Synthroid Discharge time, 35 minutes. Of this time period, 17 minutes were spent in coordinating patient's discharge. Admission HPI Per Admitting Provider Cesar Zhang is a pleasant 64yo female with history of HTN presenting with elevated blood pressure, palpitations and left sided chest pressure. Patient has been working with her PCP's office for blood pressure management. She had been on Metoprolol tartrate 25mg po qAM and 12.5mg po qPM. She reports that initially this regimen was effective, but more recently her blood pressures were not adequately controlled on this regimen - typically 148/90's. She was seen by her PCP on 12/22/24 and her medication was changed to Metoprolol 25mg po qAM and Olmesartan 5mg po daily. She reports blood pressures were not well controlled She was seen by her PCP on 01/14/25 and her medication was changed to Metoprolol 12.5mg po daily and Olmesartan 20mg daily. She did not feel well on this regimen and developed a funny sensation in her chest and palpitations. She ws seen by the ER on 01/24/25 and had a negative cardiac workup and was subsequently discharged home. She was seen by her PCP on 01/25/25 and her medications were changed to Metoprolol 25mg po daily and Olmesartan 20mg daily with plan to followup in 2 weeks. On 01/26/25 she phoned her PCP with poorly controlled blood pressures and Amlodipine 5mg po daily was added as well. Patient was prescribed a medrol dose pack in early December for pain in her shoulder as well. Otherwise she denies tobacco use, EtoH use, OTC cold medications, energy drinks or stimulants. Denies pain, anxiety at present. This evening she developed palpitations with elevated heart rate and pain under her left breast. Her blood pressures were very high at home so she came to the ER. Pain in her chest has since resolved. No headache, visual changes, numbness/tingling/weakness, SOB or back pain at present In the ER patient with elevated blood pressures Labetalol 5mg IV x 1 dose Discharge Exam Constitutional General: Comfortable, coherent, cooperative. Wide awake and alert. Not confused, lethargic, or obtunded. Patient speaks in complete, fluent, and articulate sentences without pause, interruption, cough, or wheeze. HEENT: Normocephalic, atraumatic. Pupils equally round and reactive to light. Extra-ocular muscles intact. No nystagmus, gaze paresis, anisocoria, miosis, mydriasis, hyphema, scleral injection, conjunctivitis, or pterygium. No rhinorrhea or otorrhea. No pharyngeal discharge or erythema. Neck: Supple, no stridor, bruit, goiter, hepatojugular reflux. Jugular venous pressure is estimated to be 8 cm above the sternal angle of Noe, which is estimated to be 5 cm above the level of the right atrium. Lymph: No anterior/posterior cervical, supraclavicular/infraclavicular, axillary, epitrochlear, or inguinal adenopathy. Chest: Symmetric rise and fall with respirations. Lungs: Clear to auscultation and percussion. No audible expiratory wheeze, egophony, pectoriloquy, increase in tactile fremitus, or flatness/dullness to percussion at the bases. Heart: RRR, S1 and S2 noted. No S3 or S4 summation gallop noted. No tripartite friction rub. Grade II/ early systolic murmur @ LLSB without radiation to the carotids, axilla, or back, and which remains invariant in regards to the respiratory cycle. Abdomen: Soft, generalized tenderness, non-distended. No rebound, guarding, Martinez's sign, or organomegaly. Bowel sounds sounds auscultated in all 4 quadrants. Extremities: No clubbing, cyanosis, or edema. 2+ pedal pulses bilaterally. Skin: No decubitus ulcer or enanthem or exanthem. Neurology: Alert and oriented to person, place, time, and situation. DTR+ and symmetric. 5/5 motor strength in all 4 extremities, both proximally and distally. No pronator drift. No facial droop. No tremors, tics, or myoclonus. Urology: No edmondson. No urethral discharge. Psychiatry: No suicidal ideation. No homicidal ideation. Discharge Plan Discharge Items Patient Disposition: Home - Self-Care Reason For Visit: HYPERTENSION, CHEST PAIN Discharge Diagnosis: HTN urgency with no end-organ failure; chest pain, s/p TAMIE Condition on Discharge: Fair Activity: Resume your previous activity Non-emergency contact: Primary Care Provider Call non-emergency contact if: you have any medication questions Follow-up/Referrals: Jadiel Mccarthy MD [Primary Care Provider] - 02/02/25 11:00 am (Hospital follow up scheduled on 02/02/25 at 11:00 with Karina Hardy) Diet: Heart Healthy, Low Fat and Low Sodium (2gm) Addtl Attending Provider Instructions: See your PCP Dr. Jadiel Mccarthy within 7 days of hospital discharge for repeat BP testing. Pending Studies at Discharge: No Stand-Alone Forms: My inexio, Smoking Cessation Medications and DC Order Prescriptions: New metoprolol tartrate 25 mg Tablet 25 mg PO BID Qty: 60 0RF Continued rosuvastatin 10 mg tablet 10 mg PO DAILY Qty: 90 3RF levothyroxine 112 mcg tablet 112 mcg PO DAILY Qty: 90 3RF amlodipine 5 mg tablet 5 mg PO DAILY Qty: 30 2RF Discontinued metoprolol tartrate 25 mg tablet 25 mg PO DAILY Discharge Orders: Discharge Order (Routine); Ordered 01/28/25 Ordered By: Adrian Corley Admission Data Admit Date/Time: 01/27/25 03:46 Attending Provider: Adrian Corley Admit Provider: Kacey Ferrara Primary Care Provider: Jadiel Mccarthy Other Providers: Kacey Ferrara Other Interventions: Discharge Summary Assessment (RN) Last Done: 01/27/25 14:28 Hospital Stay Data Consultations 01/27/25 03:13 ED Decision to Admit Stat Pending Results Patient Have Any Pending Studies at Discharge: No Discharge Instructions Given to Patient (Per Discharging Provider) See your PCP Dr. Jadiel Mccarthy within 7 days of hospital discharge for repeat BP testing. Total Time Total Time Spent Total Time Spent (In Minutes): 35 Coding Level of Care Code 65921 INP/OBS DISCH >30 MIN Diagnoses Primary hypertension I10 Chest pain R07.9 Heart palpitations R00.2 Acquired hypothyroidism E03.9 Hypothyroidism type: acquired
[2025-01-28 10:56] VITALS: PULSE 81
[2025-01-28 11:21] VITALS: BP 143/80
== END 2025-01-28 12:33 | disposition home or self-care (01) ==
LOC: ED 23:51 → 2S 23:51 → SUATTDRO 01-27 03:46 → 2S 01-27 05:01